=== PATIENT | female | born 1965 | race Caucasian/White ===

== ENCOUNTER 2016-08-11 19:22 | Emergency (ER) | payer OTHER ==
[~2016-08-11] VITALS: Ht 167.6 cm; Wt 80.0 kg
[~2016-08-11 19:22] MED LIST: AMOX-364 PO; PROM25TA14 PO
[2016-08-11 19:26] VITALS: BP 124/87; PULSE 82; RESP 20; O2SAT 97
--- NOTE | 2016-08-11 20:13 | ED.REPORT ---
HPI-General Illness Date of Service August 11, 2016 ED Provider: Garrett Lobato MD Patient is a 51 year old female with a history of asthma, CAD, fibromyalgia, bipolar disorder, hypertension and diabetes mellitus who presents to the ED following an asthma attack that occurred earlier this afternoon. Associated symptoms include SOB and a non-productive cough. Patient visited an asthma specialist this afternoon but was unable to obtain a prescription for prednisone. She states that this feels similar to her previous asthma attacks. Patient typically uses an albuterol inhaler and Nasacort nasal spray and Q-elidia. She denies any fever or chills. Nursing Notes Stated Complaint: DIFFICULTY BREATHING Chief Complaint: Respiratory Distress Nursing Notes Reviewed: Yes Allergies: Coded Allergies: latex (Verified Allergy, Severe, 01/08/16) codeine (Verified Allergy, Intermediate, 01/08/16) doxycycline (Verified Allergy, Intermediate, 01/08/16) Uncoded Allergies: ERYTHROMYCIN (Allergy, Intermediate, RASH TOUNGE SWELLS, 01/08/16) Scheduled Amoxicillin/Clav K ER 1000-62.5 mg (Augmentin XR 1000-62.5 mg) 1 Each Tab.er.12h 1 TABLET PO BID Prednisone (PredniSONE) 20 Mg Tablet 40 MG PO DAILY Scheduled PRN Promethazine (Promethazine) 25 Mg Tablet 12.5 MG PO Q6H PRN PRN For Nausea General Time Seen by MD: 19:39 Chief Complaint Other (Asthma Attack (SOB)) Hx Obtained From: Patient Arrived By: Walk-in Sudden in Onset?: Yes Onset Occurred: 5 - 8 hours ago Symptom Duration: Since onset Associated with: Reports: Cough, Difficulty breathing, Shortness of breath, Denies: Fever Pertinent Negative: Pt denies other symptoms Recent Healthcare: No recent doctor visit, No recent hospitalization Past Medical History Past Medical History Bipolar fibromyalgia Asthma CAD Reports: Diabetes mellitus, Hypertension Past Surgical History None reported. Smoking History Unknown if Ever Smoker Social History Other Social History: Good social support, Local resident Ambulatory Status Independent Review of Systems Full Review of Systems Constitutional: Denies: Chills, Fever Respiratory: Reports: Non-productive cough, Shortness of breath Complete sys rev & neg: except as marked. Physical Exam Vital Signs Vital Signs Date Time Temp Pulse Resp B/P Pulse Ox O2 Delivery O2 Flow Rate FiO2 08/11/16 20:44 86 18 98 Room Air 08/11/16 19:26 35.9 82 20 124/87 97 Room Air Initial VS: Reviewed Neck: Supple, Non-tender, Full range of motion Extremities: Vascular intact, Neuro intact, No swelling (No calf swelling) , No tenderness (No calf tenderness) Skin: Warm, Dry, No cyanosis Neurologic: Alert, Oriented, Nonfocal Psychiatric: Mood/affect normal, Behavior normal, Normal thought content General/Constitutional: Awake, Alert, No acute distress Head / Eyes: Atraumatic, Normocephalic, PERRL Respiratory / Chest: Atraumatic Diminished Breath Sounds: Positive: Decreased bilateral (Diminished breath sounds in both lung mills ) Wheezing / Retractions: Positive: Wheezing expiratory (Mild ) Cardiovascular: Heart rate NL, Regular rhythm, Heart sounds NL, No gallop, No murmurs, No rubs, Peripheral circulation NL (Good distal pulses ), Pulses = bilaterally Abdomen: Atraumatic, Soft, Non-tender, No distention Interpretation & Diagnostics X-Ray Chest Interpretation Chest Xray Interpretation: IMPRESSION: No acute or active disease is found in the two-view chest. Dictated by: Stephen Ugalde M.D. on 08/11/2016 at 20:40 Interpretation / Wet Read by: Interpret - Radiologist Re-Eval/Medical Decision Med Decision/Clinical Course Patient is a relatively healthy 51-year-old female with a history of bipolar disorder/anxiety as well as asthma who presents to the emergency department complaining of asthma exacerbation. She states that she was seen earlier today by her dress designer and prescribed antihistamines as well as inhaled steroids but that this afternoon her symptoms started to flare up even more. She reports that she is wheezing and feeling short of breath. She states that her symptoms have improved slightly after arriving in the emergency room. She has been treated with prednisone in the past and reports that this is very helpful but was not prescribed any today. Upon arrival she is in mild respiratory distress though otherwise hemodynamically stable and afebrile. Chest x-ray demonstrates no focal consolidation. Here she was treated with a DuoNeb as well as 40 mg of oral prednisone. She reported significant symptomatic improvement. She was ambulated on pulse oximetry and maintained oxygen saturation in the high 90s on room air. She will be prescribed with 4 days of prednisone and advised to use her albuterol inhaler with spacer every 2-4 hours for the next 48 hours. She will follow-up with her dress designer. At this time I see no evidence suggestive of pulmonary embolism, acute coronary syndrome, pneumonia or other immediately concerning process. I feel she is appropriate for outpatient management. Prior to discharge follow-up and return precautions were reviewed in detail with the patient who verbalized understanding and agreement with the plan. The patient was discharged in stable condition. Time of Eval: 20:19 Patient Status: Condition improved Re-Evaluation/Progress Note: Breathing has improved and patient understands and agrees with plan to discharge with inhaler. She will meet with her PCP next week for a recheck. Counseled Regarding: Diagnosis, Need for follow-up, When/why to return to ED Discharge & Departure Primary Impression: Asthma attack Additional Impressions: Shortness of breath Anxiety Seasonal allergies Allergic rhinitis trigger: unspecified Qualified Code: J30.2 - Other seasonal allergic rhinitis Disposition: Home Discharge Condition All VS Reviewed: Yes Condition: Improved Patient Instructions: Asthma (ED) Additional Instructions: Thank you for seeking care at the emergency room. Our primary goal today in the ED was to evaluate you for any life-threatening conditions. Your evaluation was reassuring. You will be discharged with a prescription for prednisone, please take as directed. Use your albuterol inhaler every 2-4 hours for the next 24-48 hours. Continue to take all of your medications as prescribed. You should follow-up with your primary doctor in the next week. You should return to the ED immediately if you develop persistent cough, shortness of breath, chest pain, lightheadedness, weakness or any other concerning signs or symptoms. Thank you for letting us partake in your care today. Referrals: Mela Mejia MD (PCP) Scribe Attestation Portions of this note were transcribed by Keira Arriola. I, Dr. Lobato personally performed the history, physical exam and medical decision-making; I reviewed and confirmed the accuracy of the information in the transcribed note. Signed by: Emery Garnett, 08/11/[id number]. copies to: Mela Mejia MD, Beck O MD August 11, 2016 20:13 KEIRA ARRIOLA August 11, 2016 20:15
[2016-08-11] MEDS ORDERED: PRE20 PO (20:14)
[2016-08-11] MEDS ORDERED: predniSONE 20 mg Tablet PO ONE (20:15)
[2016-08-11] MEDS ORDERED: Albuterol HFA 60 Puff 8 Gm Inhaler INHALATION PRN (20:20)
[2016-08-11] MEDS ORDERED: Albuterol-Ipratropium 3 mL Inhalation Solution NEB ONE (20:20)
--- NOTE | 2016-08-11 20:42 | DRSVH ---
PROCEDURE: X-RAY CHEST, TWO VIEWS ([id number]) INDICATIONS: SHORT OF BREATH TECHNIQUE: 2 views of the chest were acquired. COMPARISON: None. FINDINGS: Surgical changes and devices: None. Lungs and pleura: No pleural effusions or pneumothorax. Lungs are clear. Mediastinum: Mediastinal contours are normal. Heart size is normal. Bones and chest wall: No suspicious bony abnormalities. Soft tissues appear unremarkable. IMPRESSION: No acute or active disease is found in the two-view chest. Dictated by: Stephen Ugalde M.D. on 08/11/2016 at 20:40 Approved by: Stephen Ugalde M.D. on 08/11/2016 at 20:40
[2016-08-11 20:44] VITALS: PULSE 86; RESP 18; O2SAT 98
[2016-08-11] MEDS ORDERED: _Proair 200 Puff/8.5 GM Inhaler INHALATION PRN (20:45)
[2016-08-11 21:06] VITALS: BP 130/68; PULSE 85; RESP 20; O2SAT 98
== END 2016-08-11 21:07 | disposition home or self-care (01) ==
LOC: SED 19:22
DX: J45.901 Unspecified asthma with (acute) exacerbation (principal); F41.9 Anxiety disorder, unspecified; J30.2 Other seasonal allergic rhinitis; F31.9 Bipolar disorder, unspecified; M79.7 Fibromyalgia; E11.9 Type 2 diabetes mellitus without complications; I25.10 Atherosclerotic heart disease of native coronary artery without angina pectoris; I10 Essential (primary) hypertension; Z91.040 Latex allergy status; Z88.5 Allergy status to narcotic agent; Z88.1 Allergy status to other antibiotic agents
CPT/HCPCS: 71020; 94640; 99284; J7620